=== PATIENT | female | born 1995 | race African-American/Black ===

== ENCOUNTER 2017-08-08 06:38 | Inpatient (IN) | payer OTHER ==
[2017-08-08 07:47] LABS: HEMATOCRIT 36.4 % (36.0-47.0); HEMOGLOBIN 12.1 g/dl (12.0-15.5); MEAN CORPUSCULAR HGB CONC 33.2 g/dl (32.0-36.5); MEAN CORPUSCULAR VOLUME 78.1 fl (80.0-96.0); PLATELET COUNT, AUTOMATED 204 10^3/uL (150-450); RED BLOOD COUNT 4.66 10^6/uL (4.00-5.40); RED CELL DISTRIBUTION WIDTH 14.7 % (11.5-14.5); WHITE BLOOD COUNT 9.3 10^3/uL (4.0-10.0)
[2017-08-08] MEDS ORDERED: OXYTOCIN INJ 10 UNITS/ML VIAL (J2590) As Ordered (08:11)
[2017-08-08] MEDS ORDERED: dexameTHASONE 4 MG/ML 1ML VIAL (J1100) As Ordered (08:11)
[2017-08-08] MEDS ORDERED: ONDANSETRON 4MG/2ML VIAL (J2405) As Ordered ×2 (08:11→11:09)
[2017-08-08] MEDS ORDERED: MORPHINE PRES-FREE INJ 10 MG/10 ML VIAL (J2274) As Ordered (08:12)
[2017-08-08] MEDS ORDERED: fentaNYL 100 MCG/2 ML INJECTION (J3010) As Ordered (08:12)
[2017-08-08] MEDS: LR 1,000 ML IV ×2 (08:25→09:48)
[2017-08-08] MEDS: BICITRA 30ML SOLN UDC PO (08:25)
[2017-08-08] MEDS: DOCUSATE SODIUM 100 MG CAP PO ×2 (09:00→21:16)
[2017-08-08] MEDS ORDERED: PHENYLephrine HCL 500 MCG/5 ML (100MCG/ML) SYRINGE (J2370) As Ordered (09:10)
[2017-08-08] MEDS ORDERED: RHOGAM 300 MCG (1500 IU) INJ (J2790) IM (10:00)
[2017-08-08] MEDS ORDERED: ONDANSETRON 4MG/2ML VIAL (J2405) IV ×2 (10:00→10:15)
[2017-08-08] MEDS ORDERED: PERCOCET 5MG/325MG TAB PO ×2 (10:00)
[2017-08-08] MEDS ORDERED: MEASLES,MUMPS,RUBELLA VACCINE INJ (MMR-II) (90707) SC (10:00)
[2017-08-08] MEDS ORDERED: METHYLERGONOVINE MALEATE 0.2 MG/ML VIAL (J2210) IM (10:00)
[2017-08-08] MEDS ORDERED: NALBUPHINE HCL 10 MG/ML AMP (J2300) IV (10:15)
[2017-08-08 10:49] LABS: HBSAG L&D NEGATIVE (NEGATIVE)
[2017-08-08] MEDS: KETOROLAC 30 MG/ML VIAL (J1885) IV ×2 (16:30→21:17)
[2017-08-08] MEDS: PROMETHAZINE 25 MG TAB PO (22:06)
[2017-08-09] MEDS: LR 1,000 ML IV (01:48)
[2017-08-09] MEDS: KETOROLAC 30 MG/ML VIAL (J1885) IV ×2 (04:30→09:48)
[2017-08-09 07:35] LABS: HEMATOCRIT 27.5 % (36.0-47.0); HEMOGLOBIN 9.1 g/dl (12.0-15.5); MEAN CORPUSCULAR HEMOGLOBIN 25.9 pg (27.0-33.0); MEAN CORPUSCULAR HGB CONC 33.1 g/dl (32.0-36.5); MEAN CORPUSCULAR VOLUME 78.3 fl (80.0-96.0); PLATELET COUNT, AUTOMATED 174 10^3/uL (150-450); RED BLOOD COUNT 3.51 10^6/uL (4.00-5.40); RED CELL DISTRIBUTION WIDTH 14.5 % (11.5-14.5); WHITE BLOOD COUNT 15.9 10^3/uL (4.0-10.0)
[2017-08-09] MEDS: PRENATAL VITAMINS CHEWABLE TABLET PO (08:03)
[2017-08-09] MEDS: DOCUSATE SODIUM 100 MG CAP PO ×2 (08:03→19:26)
[2017-08-09] MEDS: IBUPROFEN 800 MG TAB PO (19:26)
[2017-08-10] MEDS: IBUPROFEN 800 MG TAB PO ×2 (03:00→10:00)
[2017-08-10] MEDS: PRENATAL VITAMINS CHEWABLE TABLET PO (08:02)
[2017-08-10] MEDS: DOCUSATE SODIUM 100 MG CAP PO (08:02)
== END 2017-08-10 11:30 | disposition home or self-care (01) | DRG 766 ==
LOC: M LDI 06:38 → M OBS 12:15
PROVIDERS: Obstetrics & Gynecology
PROC: 10D00Z1 Extraction of Products of Conception, Low, Open Approach (ICD-10-PCS; principal; 2017-08-08 08:31)
DX: O34.211 Maternal care for low transverse scar from previous cesarean delivery (principal); Z37.0 Single live birth; Z3A.39 39 weeks gestation of pregnancy; O99.820 Streptococcus B carrier state complicating pregnancy

== ENCOUNTER → 2018-02-26 | Outpatient (REF) | payer OTHER | LOC: M SFHCLERA 17:04 | DX: J02.9 Acute pharyngitis, unspecified (principal) ==